=== PATIENT | male | born 1975 | race Hispanic/Latino ===

== ENCOUNTER 2021-05-18 14:40 | Emergency (ER) | payer BC, OTHER ==
[~2021-05-18] VITALS: Ht 165.1 cm; Wt 136.1 kg
[~2021-05-18 14:40] MED LIST: AZITHROMYCIN250 MG PO; TAMIFLU75 MG PO; TESSALON PERLE100 MG PO; VENTOLIN HFA18 GM PO
[2021-05-18] MEDS ORDERED: IBUPROFEN 600 MG TAB PO STA (14:50)
[2021-05-18] MEDS ORDERED: ACETAMINOPHEN 325 MG TAB PO ONE (15:00)
[2021-05-18] MEDS ORDERED: ACETAMINOPHEN 325 MG TAB ONE (15:48)
[2021-05-18] MEDS ORDERED: IBUPROFEN 600 MG TAB ONE (15:48)
[2021-05-18] MEDS ORDERED: IBUPROFEN600 MG PO (16:09)
[2021-05-18] MEDS ORDERED: CYCLOBENZAPRINE10 MG PO (16:09)
== END 2021-05-18 16:18 | disposition home or self-care (01) ==
LOC: FSED 14:44
DX: S40.011A Contusion of right shoulder, initial encounter (principal); W01.0XXA Fall on same level from slipping, tripping and stumbling without subsequent striking against object, initial encounter; Y93.01 Activity, walking, marching and hiking; Y92.89 Other specified places as the place of occurrence of the external cause
CPT/HCPCS: 99283